=== PATIENT | male | born 1955 | race Caucasian/White ===

== ENCOUNTER → 2018-11-09 | Outpatient (CLI) | payer OTHER | LOC: M.LAB 13:46 → M.CT 15:00 | PROVIDERS: Internal Medicine | DX: I71.2 Thoracic aortic aneurysm, without rupture (principal); I10 Essential (primary) hypertension; G47.33 Obstructive sleep apnea (adult) (pediatric); Z79.899 Other long term (current) drug therapy ==

== ENCOUNTER → 2019-01-19 | Outpatient (CLI) | payer OTHER ==
--- NOTE | 2019-01-24 07:49 | SLEEP ---
[address] [address] SLEEP STUDY REPORT Name: JOAQUIN DYER Room: [facility]#: [id number] Admission: 01/19/19 Attend Phys: Daniela Biggs MD, Discharge: Date of : 57 Report #: [id number] THIS REPORT FOR: //name// CC: Daryl Biggs MD [facility] Daniela Biggs This study has been reviewed in its entirety by a board certified sleep specialist DATE OF SERVICE: 01/19/2019 SLEEP STUDY REFERRING PHYSICIAN: Daryl Biggs M.D., [facility] The patient is 63 years old who weighs 210 pounds with a BMI of 29.3. The patient's [place] score was 3. The patient has history of sleep apnea and previously has not tolerated CPAP and BiPAP and has done well with ASV. The patient was referred back for ASV titration. During the night of the study, the patient spent 445 minutes in bed and slept for 219 minutes with a sleep efficiency of 49%, which is low. Sleep latency was 71 minutes with a REM latency of 205 minutes. Sleep architecture showed normal stage 1 and stage 2 sleep, increased slow wave and reduced REM sleep, which was 9.6% of total sleep time. EKG monitoring revealed an average heart rate of 65 beats per minute. No sustained arrhythmias observed. PLMs were seen at an index of 44 per hour and 21 per hour caused EEG arousals. The patient was started on EPAP of 5 with a minimum pressure support of 0 and a maximum pressure support of 20 and with a pressure of 25. The patient was titrated up to a final pressure maximum of 25 with a minimum EPAP of 13 and max IPA of 19, minimum pressure support of 0 and a maximum pressure support of 20. The patient patient's oxygen saturations at this pressure remained above 95%.Patient had limited sleep at this pressure setting and there was one central apnea causing AHI to be 9.7/hr. IMPRESSION: 1. Sleep apnea diagnosed previously. 2. Moderate to severe PLMs. 3. Reduced sleep efficiency resulting from sleep onset and sleep maintenance insomnia. RECOMMENDATIONS: [place] [address] SLEEP STUDY REPORT Name: JOAQUIN DYER Room: [facility]#: [id number] Admission: 01/19/19 Attend Phys: Daniela Biggs MD, Discharge: Date of : 57 Report #: [id number] 1. The patient should be placed on ASV with a maximum pressure of 25, minimum EPAP of 13, maximum IPAP of 19, minimum pressure support of 0, and maximum pressure support of 20. The patient should have a followup in 4-6 weeks to assess compliance and to document clinical improvement. 2. Weight loss to the ideal body weight is recommended. 3. Avoid PLASTIC CUTTER depressants. 4. The patient's insomnia should be further evaluated and treated according to the etiology. 5. The patient should also be further evaluated for symptoms of restless legs during the day. <ELECTRONICALLY SIGNED> By: Royal Valadez MD 01/24/19 0749 05 Alila Valadez MD /nt
== END ==
LOC: M.SLEEPLAB 01-06 20:00
DX: G47.33 Obstructive sleep apnea (adult) (pediatric) (principal); G47.30 Sleep apnea, unspecified; G47.61 Periodic limb movement disorder

== ENCOUNTER → 2020-03-07 | Outpatient (CLI) | payer OTHER | LOC: M.LAB 11:18 → M.CT 13:00 | PROVIDERS: ATTEND Internal Medicine | DX: I77.810 Thoracic aortic ectasia (principal); I71.2 Thoracic aortic aneurysm, without rupture; K76.0 Fatty (change of) liver, not elsewhere classified; N28.1 Cyst of kidney, acquired; I25.10 Atherosclerotic heart disease of native coronary artery without angina pectoris; I70.0 Atherosclerosis of aorta ==